=== PATIENT | female | born 1970 | race Caucasian/White ===

== ENCOUNTER 2017-07-06 22:23 | Emergency (ER) | payer OTHER ==
[~2017-07-06] VITALS: Ht 163.8 cm; Wt 116.4 kg
[~2017-07-06 22:23] MED LIST: CIPROFLOXACN500 MG PO; PHENTERMINE37.5 M1 PO
[2017-07-06 23:44] LABS: HEMOGLOBIN 13.6 g/dl (12.0-16.0); IMMATURE GRANULOCYTES 0.3 % (0.0-1.0); MEAN CORPUSCULAR HGB 29.2 pG CALC (26.0-32.0); MEAN CORPUSCULAR HGB CONC 33.2 g/L CALC (32.0-36.0); NEUT# 8.33 thou/uL (2.00-7.15); RED BLOOD COUNT 4.66 mill/uL (4.20-5.60); RED CELL DISTRI WIDTH 13.4 % (11.5-15.5)
[2017-07-06 23:50] LABS: ALBUMIN 3.3 g/dL (3.2-5.0); ALKALINE PHOSPHATASE 69 u/l (38-126); AMYLASE 34 u/l (30-110); ANION GAP 15 (6-22 (CALC)); BILIRUBIN, TOTAL 0.4 mg/dL (0.0-1.4); BUN 9 mg/dL (7-17); BUN/CREATININE RATIO 14 (12-20 (CALC)); CARBON DIOXIDE 23 mmol/l (22-30); CHLORIDE 106 mmol/l (95-108); CREATININE 0.6 mg/dL (0.5-1.0); GFR > 60 ML/MIN (>=60 (CALC)); GFR FOR AFR.AMER. > 60 ML/MIN (>=60 (CALC)); LIPASE 221 u/l (23-300); POTASSIUM 3.8 mmol/l (3.5-5.1); SGOT/AST 15 u/l (14-36); SGPT/ALT 29 u/l (9-52); SODIUM 140 mmol/l (137-146); TOTAL PROTEIN 6.5 g/dL (6.3-8.2)
[2017-07-07 01:13] LABS: URINE BILIRUBIN - DIPSTICK NEGATIVE (NEGATIVE); URINE BLOOD DIPSTICK TRACE-INTACT (NEGATIVE); URINE COLOR YELLOW; URINE GLUCOSE - DIPSTICK NEGATIVE (NEGATIVE); URINE KETONE NEGATIVE (NEGATIVE); URINE LEUK ESTERASE NEGATIVE (NEGATIVE); URINE NITRITE - DIPSTICK NEGATIVE (Negative); URINE PROTEIN - DIPSTICK NEGATIVE (NEG-TRACE); URINE SPECIFIC GRAVITY 1.015; URINE UROBILINOGEN - DIPSTICK 0.2 E.U./dL (0.2)
[2017-07-07 01:29] LABS: URINE CLARITY OTHER
[2017-07-07] MEDS ORDERED: ZOFRAN ODT4 MG PO (01:34)
[2017-07-07] MEDS ORDERED: PREVACID30 M3 PO (01:34)
[2017-07-07] MEDS ORDERED: LORTAB 1010 MG PO (01:34)
[2017-07-07 02:02] VITALS: BP 122/69
== END 2017-07-07 02:00 | disposition home or self-care (01) | DRG 440 ==
LOC: ED 22:23
PROVIDERS: Emergency Medicine
DX: K85.90 Acute pancreatitis without necrosis or infection, unspecified (principal); K80.20 Calculus of gallbladder without cholecystitis without obstruction
CPT/HCPCS: S0164

== ENCOUNTER 2021-03-20 10:03 | Emergency (ER) | payer OTHER ==
[~2021-03-20] VITALS: Ht 163.8 cm; Wt 119.5 kg
[~2021-03-20 10:03] MED LIST changes: +LORTAB 1010 MG PO; +PREVACID30 M3 PO; +ZOFRAN ODT4 MG PO
[2021-03-20 10:45] LABS: HEMATOCRIT 41.1 % (37.0-47.0); HEMOGLOBIN 13.2 g/dl (12.0-16.0); IMMATURE GRANULOCYTES 0.6 % (0.0-5.0); MEAN CORPUSCULAR HGB 30.1 pG CALC (26.0-32.0); MEAN CORPUSCULAR HGB CONC 32.1 g/dL CAL (32.0-36.0); NEUT# 3.02 thou/uL (2.00-7.15); RED BLOOD COUNT 4.38 mill/uL (4.20-5.60)
[2021-03-20 11:02] LABS: MEAN CELL VOLUME 93.8 fL CALC (80.0-100.0)
[2021-03-20 11:05] LABS: ALBUMIN 3.8 g/dL (3.2-5.0); ALKALINE PHOSPHATASE 76 u/l (38-126); ANION GAP 14 (6-22 (CALC)); BUN 9 mg/dL (7-17); BUN/CREATININE RATIO 13 (12-20 (CALC)); CARBON DIOXIDE 23 mmol/l (22-30); CHLORIDE 105 mmol/l (95-108); CREATININE 0.7 mg/dL (0.5-1.0); GFR > 60 ML/MIN (>=60 (CALC)); GFR FOR AFR.AMER. > 60 ML/MIN (>=60 (CALC)); POTASSIUM 4.1 mmol/l (3.5-5.1); SODIUM 139 mmol/l (137-146); TOTAL PROTEIN 7.2 g/dL (6.3-8.2)
[2021-03-20 11:08] LABS: BILIRUBIN, TOTAL 0.7 mg/dL (0.0-1.4); SGOT/AST 67 u/l (14-36)
[2021-03-20] MEDS ORDERED: VENLAFAXINE H37.5 M1 PO (11:12)
[2021-03-20] MEDS ORDERED: METFORMIN HCL1000 MG PO (11:12)
[2021-03-20] MEDS ORDERED: FOLIC ACID1 MG PO (11:13)
[2021-03-20] MEDS ORDERED: LISINOP/HCTZ1 TA2 PO (11:14)
[2021-03-20] MEDS ORDERED: ADIPEX-P37.5 M1 PO (11:15)
[2021-03-20] MEDS ORDERED: ANUCORT-HC25 MG RE (11:16)
[2021-03-20] MEDS ORDERED: DECADRON6 MG PO (12:03)
[2021-03-20] MEDS ORDERED: ZPAK PO (12:03)
[2021-03-20 12:13] VITALS: BP 139/78
== END 2021-03-20 12:27 | disposition home or self-care (01) | DRG 179 ==
LOC: ED 10:03
PROVIDERS: Family Medicine
DX: U07.1 COVID-19 (principal); I10 Essential (primary) hypertension; E11.9 Type 2 diabetes mellitus without complications; Z79.84 Long term (current) use of oral hypoglycemic drugs